=== PATIENT | female | born 1955 | race Caucasian/White ===

== ENCOUNTER 2018-07-25 14:55 | Outpatient (CLI) | payer BC ==
--- NOTE | 2018-07-25 16:21 | MMO ---
Bilateral MAMMO Bilat Screen [facility]. CLINICAL HISTORY: Patient is 62 years old and is seen for screening. The patient has the following family history of breast cancer: mother, in her 50's. The patient has no personal history of cancer. The patient has a history of right Excisional Biopsy in 2006 - benign and Breast reduction at age 38. VIEWS: The views performed were: bilateral craniocaudal with tomosynthesis and bilateral mediolateral oblique with tomosynthesis. FILMS COMPARED: The present examination has been compared to prior imaging studies performed at [facility] on 04/02/2014 and 04/13/2016, and at [facility] on 08/02/2005 and 02/09/2007. MAMMOGRAM FINDINGS: There are scattered fibroglandular densities. There are no suspicious masses, calcifications or areas of architectural distortion. There are benign appearing calcifications in both breasts. Stable right breast biopsy clip. There are no suspicious masses, suspicious calcifications, or new areas of architectural distortion. IMPRESSION: THERE IS NO MAMMOGRAPHIC EVIDENCE OF MALIGNANCY. A ROUTINE FOLLOW-UP MAMMOGRAM IN 1 YEAR IS RECOMMENDED. THE RESULTS OF THIS EXAM WERE SENT TO THE PATIENT. ACR BI-RADS Category 2 - Benign finding MAMMOGRAPHY NOTE: 1. A negative mammogram report should not delay a biopsy if a dominant of clinically suspicious mass is present. 2. Approximately 10% to 15% of breast cancers are not detected by mammography. 3. Adenosis and dense breasts may obscure an underlying neoplasm.
== END 2018-07-25 14:56 | disposition home or self-care (01) ==
LOC: BICMAMMO 14:55
PROVIDERS: ATTEND Family Medicine
DX: Z12.31 Encounter for screening mammogram for malignant neoplasm of breast (principal); Z80.3 Family history of malignant neoplasm of breast; Z91.89 Other specified personal risk factors, not elsewhere classified
CPT/HCPCS: 77063; 77067

== ENCOUNTER 2019-02-09 15:12 | Inpatient (IN) | payer BC, SELFPAY ==
[~2019-02-09 15:12] MED LIST: Iopamidol-370 76% 500 ML 1 ML ONE
[2019-02-09 15:41] LABS: #Basophils 0.1 thou/uL (0.0-0.2); #Eosinphils 0.2 thou/uL (0.0-0.7); #Lymphocytes 1.4 thou/uL (1.20-3.40); #Monocytes 1.2 thou/uL (0.11-0.59); #Neutrophils 13.7 thou/uL (1.40-6.50); %Basophils 0.3 % (0.0-1.0); %Lymphocytes 8.6 % (21.0-51.0); %Neutrophils 83.1 % (42.0-75.0); Hemoglobin 14.4 g/dL (12.0-16.0); Mean Corpuscular Hemoglobin 31.1 pg (27.0-31.0); Mean Corpuscular Volume 91.3 fL (78.0-98.0); Platelet Count 249 thou/uL (130-400); RBC Distribution Width 12.4 % (11.5-14.5); Red Blood Cell (RBC) Count 4.64 mill/uL (4.20-5.40); White Blood Cell (WBC) Count 16.5 thou/uL (4.8-10.8)
[2019-02-09] MEDS ORDERED: Metoclopramide HCl 10 MG/2 ML VIAL ONE (15:58)
[2019-02-09] MEDS ORDERED: Pantoprazole 40 MG VIAL ONE (15:58)
[2019-02-09 16:09] LABS: ALT (SGPT) 22 U/L (8-55); AST (SGOT) 17 U/L (5-34); Albumin 4.5 g/dL (3.4-4.8); Alkaline Phosphatase 99 U/L (40-110); Anion Gap 12 mmol/L (10-20); BUN (Urea Nitrogen) 13 mg/dL (9.8-20.1); Bilirubin, Total 0.4 mg/dL (0.2-1.2); Calc. Creatinine Clearance 0 mL/min (70-130); Calcium 10.7 mg/dL (7.8-10.44); Carbon Dioxide 25 mmol/L (23-31); Chloride 106 mmol/L (98-107); Estimated GFR-MDRD 84; Globulin 2.8 g/dL (2.4-3.5); Glucose 107 mg/dL (80-115); Lipase 79 U/L (8-78); Potassium 3.6 mmol/L (3.5-5.1); Protein, Total 7.3 g/dL (6.0-8.3); Sodium 139 mmol/L (136-145)
[2019-02-09 16:22] LABS: Bacteria/HPF None Seen HPF (None Seen); Bilirubin Negative (Negative); Blood, Urine 2+ (Negative); Clarity Clear (Clear); Glucose, Urine (Dipstick) Normal (Negative); Leukocyte Negative Leu/uL (Negative); Nitrite Negative (Negative); Protein, Urine (Dipstick) 10 mg/dL (Neg-Trace); Squamous Epithelial 0-3 HPF (0-3); Urobilinogen Normal mg/dL (Less than 2); WBC/HPF 0-3 HPF (0-3)
--- NOTE | 2019-02-09 16:54 | ULT ---
ULTRASOUND ABDOMEN LIMITED: (RIGHT UPPER QUADRANT) 02/09/19 HISTORY: 63-year-old female with right upper quadrant abdominal pain. FINDINGS: Gallbladder: No gallstones, mural thickening, or pericholecystic fluid. Questionable small amount of sludge. Common duct: 3 mm. Liver: Normal echogenicity. Pancreas: No sonographic abnormality identified. Right kidney: No hydronephrosis. IMPRESSION: 1. Questionable gallbladder sludge. 2. Otherwise negative. CLAUDIA Rodriguez POS: MATTHEW
--- NOTE | 2019-02-09 18:24 | CT ---
CTA OF THE CHEST AND ABDOMEN UTILIZING AN AORTIC DISSECTION PROTOCOL AND 3-D REFORMATTED IMAGING INDICATION: 63-year-old female with abdominal pain and chest pain COMPARISON: None FINDINGS: Aorta: No acute aortic stenosis, occlusion or aneurysmal formation demonstrated. There are vascular c alcifications involving the thoracic and abdominal aorta Central pulmonary artery: No central pulmonary embolus demonstrated. Additional thorax findings: There is a calcified lymph node within the right aspect of the mediastinu m. There is subsegmental volume loss involving both lungs. There is a small hiatal hernia. Additional abdominal findings: There is inflammatory infiltration and edema involving the pancreatic head. There is reactive wall edema involving the third portion the duodenum. There are shotty appearing lymph nodes within the peripancreatic region. There is partial visualization of intra-abdom inal wall hernia mesh. Osseous structures: No acute osseous abnormality. There is scattered degenerative and osteoarthritic change present. IMPRESSION: 1. No appreciable aortic stenosis, occlusion or aneurysmal formation demonstrated. 2. Noncomplicated acute pancreatitis
[2019-02-09] MEDS ORDERED: Morphine 4 MG/ML VIAL ONE ×2 (19:00→20:01)
[2019-02-09] MEDS ORDERED: Ondansetron PF 4 MG/2 ML Vial ONE (20:01)
[2019-02-09] MEDS ORDERED: Ketorolac Tromethamine 30 MG/ML VIAL ONE (20:01)
[2019-02-09 20:22] LABS: Amphetamine Not Detected (NotDetected); Barbiturates Screen Not Detected (NotDetected); Benzodiazepine Screen Not Detected (NotDetected); Cocaine Metabolite Screen Not Detected (NotDetected); Medtox Control Line Valid? VALID (VALID); Medtox Reader # READER 4; Methadone Not Detected (NotDetected); Methamphetamine Not Detected (NotDetected); Opiate Screen Not Detected (NotDetected); Oxycodone Screen Not Detected (NotDetected); Phencyclidine (PCP) Not Detected (NotDetected); THC/Cannabinoid Screen Not Detected (NotDetected); Tricyclic Screen Not Detected (NotDetected)
--- NOTE | 2019-02-09 21:07 | PDOC.EVN ---
Event Note - Event Note Event Note: [id number]
[2019-02-09] MEDS: Famotidine/PF 20 mg/2ml Vial SLOW IVP SCH (22:37)
[2019-02-09] MEDS: Sodium Chloride 0.9% 1,000 ML IV SCH (22:38)
[2019-02-10] MEDS: Morphine 4 MG/ML VIAL SLOW IVP PRN ×4 (00:17→19:23)
[2019-02-10] MEDS ORDERED: cefTRIAXone\\ROCEPHIN 1 GM in Sodium Chloride 0.9% 100 ML IVPB SCH (01:00)
[2019-02-10] MEDS: Acetaminophen 650 MG in Premix Bag 1 BAG IVPB PRN ×4 (01:05→22:11)
--- NOTE | 2019-02-10 02:28 | HP ---
CHIEF COMPLAINT: Abdominal pain. HISTORY OF PRESENT ILLNESS: Ms. Bourne is a 63-year-old female with past medical history of hyperlipidemia, presented to the emergency room with abdominal pain that started yesterday evening. The patient also reported nausea and vomiting. She reports that the last p.o. intake was around 10:00 a.m. this morning. She is unable to tolerate the meal. The patient also reported the pain radiating to the back and the chest. She has a history of hysterectomy one year ago and emergency hernia surgery 10 years ago. Denies bowel or urinary changes. No fever, no chills. Workup in the emergency room, including right upper quadrant ultrasound unremarkable except for questionable gallbladder sludge. CT of the abdomen showed noncomplicated acute pancreatitis. Lipase is elevated, mildly at 79 ? The patient continues to have intractable abdominal pain. The patient is being admitted to the hospital for further management. PAST MEDICAL HISTORY: Hyperlipidemia. PAST SURGICAL HISTORY: As mentioned above in the history of present illness. FAMILY HISTORY: Reviewed and noncontributory. SOCIAL HISTORY: She is a smoker, smokes a pack a day. She denies alcohol drinking. HOME MEDICATIONS: Please see home medication reconciliation form for updated medications. ALLERGIES: NO KNOWN ALLERGIES. REVIEW OF SYSTEMS: Review of 14 systems negative except what is mentioned in the history of present illness. PHYSICAL EXAMINATION: GENERAL: The patient is awake, alert, in moderate/severe distress secondary to pain. VITAL SIGNS: Blood pressure 142/76, pulse is 68, temperature is 98.6, respiratory rate is 16. HEAD: Normocephalic, atraumatic. NECK: Supple. No JVD. CHEST: Fair bilateral air entry. ABDOMEN: Soft with mid abdominal and epigastric tenderness. Bowel sounds present. NEUROLOGIC: Awake, alert, and oriented x3. PSYCHIATRIC: Normal mood. EXTREMITIES: No clubbing or cyanosis. LABORATORY DATA: CTA of the chest and abdomen as mentioned above in history of present illness. Lipase is only mildly elevated at 79. Urinalysis shows 2+ blood and rbc's, otherwise unremarkable. WBC count is elevated at 16.5, hemoglobin is 14.4, platelets Bilirubin is normal. Alkaline phosphatase normal. ALT and AST normal. ASSESSMENT AND PLAN: 1. Acute abdominal pain. 2. Acute pancreatitis ? as seen on imaging studies with only mildly elevated lipase ? 3. Nausea and vomiting. 4. Hyperlipidemia. PLAN: 1. Admit. 2. N.p.o. 3. IV fluids. 4. Pain management. 5. Reassess in a.m. If the patient is able to tolerate p.o., possible discharge. 6. Also we will check triglyceride level. 7. Reconcile home medications. 8. DVT prophylaxis as appropriate. 9. Expected length of stay at least 1 midnight if the patient is stable and able to tolerate p.o. Job ID: [id number]
[2019-02-10] MEDS: Ondansetron PF 4 MG/2 ML Vial IVP PRN ×3 (04:22→19:28)
[2019-02-10 05:21] LABS: Band 9 % (5-11); Eosinophils 1 % (0-10); Lymphocytes 10 % (21-51); MDiff Complete? YES; Mean Corpuscular HGB CONC 33.2 g/dL (32.0-36.0); Mean Corpuscular Hemoglobin 30.3 pg (27.0-31.0); Mean Corpuscular Volume 91.4 fL (78.0-98.0); Mean Platelet Volume 7.7 fL (7.4-10.4); Monocytes 8 % (0-10); Neutrophil 71 % (42-75); Platelet Count 213 thou/uL (130-400); Platelet Morphology Comment Appears Adequate; RBC Distribution Width 12.1 % (11.5-14.5); RBC Morphology Normal; Reactive Lymphocytes 1 % (0-10); Red Blood Cell (RBC) Count 4.28 mill/uL (4.20-5.40); White Blood Cell (WBC) Count 14.6 thou/uL (4.8-10.8)
[2019-02-10 05:48] LABS: ALT (SGPT) 15 U/L (8-55); AST (SGOT) 12 U/L (5-34); Albumin 3.8 g/dL (3.4-4.8); Alkaline Phosphatase 77 U/L (40-110); Anion Gap 10 mmol/L (10-20); BUN (Urea Nitrogen) 10 mg/dL (9.8-20.1); Bilirubin, Total 0.4 mg/dL (0.2-1.2); Calc. Creatinine Clearance 106 mL/min (70-130); Calcium 8.9 mg/dL (7.8-10.44); Carbon Dioxide 26 mmol/L (23-31); Chloride 106 mmol/L (98-107); Estimated GFR-MDRD 89; Globulin 2.1 g/dL (2.4-3.5); Glucose 126 mg/dL (80-115); Potassium 3.5 mmol/L (3.5-5.1); Protein, Total 5.9 g/dL (6.0-8.3); Sodium 138 mmol/L (136-145)
[2019-02-10] MEDS: Sodium Chloride 0.9% 1,000 ML IV SCH ×4 (06:44→21:57)
[2019-02-10] MEDS: Famotidine/PF 20 mg/2ml Vial SLOW IVP SCH ×2 (08:34→21:57)
[2019-02-10] MEDS ORDERED: Morphine 2 MG/ML SYRINGE SLOW IVP SCH (09:15)
--- NOTE | 2019-02-10 12:03 | PRG ---
DATE OF SERVICE: 02/10/2019 SUBJECTIVE: The patient is seen and examined at the bedside. She has quite significant amount of abdominal pain with some nausea. She did not improve much since yesterday. OBJECTIVE: VITAL SIGNS: Blood pressure is 111/56, pulse is 66, respirations 20, O2 saturation is 92% on room air, temperature is 99.1 and maximal is 100.9. HEAD: Atraumatic and normocephalic. EYES: PERRLA. Sclerae are nonicteric. ENT: Oral mucosa is dry. NECK: Supple. LUNGS: Clear. HEART: S1 and S2 normal. No S3. No S4. No any murmur. ABDOMEN: Soft. Somewhat tender to palpation in the mid center. No guarding. No masses. EXTREMITIES: No clubbing, cyanosis, or edema. NEUROLOGIC: She is alert and oriented x4. There are no any motor or sensory deficits. LABORATORY DATA: Labs showed white count of 14.6, hemoglobin of 13.0, hematocrit 39.2, platelet count is 213. Normal electrolytes. Normal kidney function. Glucose 126. Normal AST and ALT. Normal bilirubin. Normal alkaline phosphatase. Globulin 2.1. Serum total protein 5.9. IMPRESSION: 1. Abdominal pain with mildly elevated lipase in the setting of patient who does not drink alcohol and she has possible gallbladder sludge based on the ultrasound of the abdomen which was done yesterday. 2. Hyperlipidemia. PLAN: Continue IV fluids. Restart morphine 4 mg every 4 hours IV push. We will keep her on n.p.o. with ice chips. We will continue antiemetics. We will stop her Rocephin and continue DVT prophylaxis. Job ID: [id number]
[2019-02-11] MEDS: Acetaminophen 650 MG in Premix Bag 1 BAG IVPB PRN ×4 (04:27→22:42)
[2019-02-11] MEDS: Sodium Chloride 0.9% 1,000 ML IV SCH ×4 (04:27→22:42)
[2019-02-11 06:53] LABS: #Basophils 0.1 thou/uL (0.0-0.2); #Eosinphils 0.2 thou/uL (0.0-0.7); #Lymphocytes 1.7 thou/uL (1.20-3.40); #Monocytes 0.9 thou/uL (0.11-0.59); #Neutrophils 8.7 thou/uL (1.40-6.50); %Basophils 0.4 % (0.0-1.0); %Eosinophils 1.3 % (0.0-10.0); %Lymphocytes 14.8 % (21.0-51.0); %Monocytes 7.6 % (0.0-10.0); %Neutrophils 75.9 % (42.0-75.0); Mean Corpuscular HGB CONC 32.8 g/dL (32.0-36.0); Mean Corpuscular Hemoglobin 30.3 pg (27.0-31.0); Mean Corpuscular Volume 92.1 fL (78.0-98.0); Mean Platelet Volume 7.6 fL (7.4-10.4); Platelet Count 176 thou/uL (130-400); Red Blood Cell (RBC) Count 3.63 mill/uL (4.20-5.40); White Blood Cell (WBC) Count 11.4 thou/uL (4.8-10.8)
[2019-02-11] MEDS: Famotidine/PF 20 mg/2ml Vial SLOW IVP SCH (08:23)
[2019-02-11] MEDS: Ondansetron PF 4 MG/2 ML Vial IVP PRN ×2 (08:25→20:12)
--- NOTE | 2019-02-11 12:43 | CON ---
DATE OF CONSULTATION: 02/11/2019 REQUESTING PHYSICIAN: Enrrique Harris MD REASON FOR CONSULTATION: Intractable abdominal pain and pancreatitis. HISTORY OF PRESENT ILLNESS: Ángela Bourne is a 63-year-old woman, who was admitted to the hospital a couple of days ago with first episode of acute pancreatitis. She had a fairly sudden onset the prior day of nausea and vomiting as well as epigastric pain radiating to the back and up into the chest. She has intermittently been febrile since presentation with low-grade fevers. Notably, CT scan on admission demonstrated inflammatory changes and reactive edema around the pancreatic head with reactive edema in the third portion of the duodenum. There are no CT evidence of other complications. An ultrasound showed possible biliary sludge, but a normal common bile duct. Lipase was elevated only to 79 and has since come down to 34 and LFTs have been normal throughout this admission. Regardless, the patient has continued to have significant abdominal pain, has continued to request morphine and Tylenol. She has not had any bowel movements since admission. The nausea is a bit better. She has remained n.p.o. with favorable hemodynamic status and laboratory studies. The patient does endorses she takes a lot of nonsteroidal anti-inflammatory drugs on an outpatient basis for her joint aches and pains. PAST MEDICAL HISTORY: Hysterectomy, anterior abdominal wall hernia surgery, and colonoscopy in 2014 showing only left-sided diverticulosis. REVIEW OF SYSTEMS: Full review of systems including constitutional, head, eyes, ears, nose, throat, GI, , cardiovascular, respiratory, musculoskeletal, and neurologic systems are negative except as noted in the HPI. SOCIAL HISTORY: The patient does smoke one pack cigarettes per day. No alcohol use. No drug use. FAMILY HISTORY: Her father had colon cancer. ALLERGIES: NO KNOWN DRUG ALLERGIES. OUTPATIENT MEDICATIONS: Atorvastatin. INPATIENT MEDICATIONS: 1. Morphine p.r.n. 2. Tylenol p.r.n. 3. Pepcid 20 mg q.12 hours IV. 4. Zofran p.r.n. PHYSICAL EXAMINATION: VITAL SIGNS: Temperature 98.9, T-max overnight was 100.6, pulse 51, blood pressure 112/59, and 95% oxygen saturation on room air. GENERAL: A 63-year-old woman, lying in bed comfortably, in no distress. SKIN: No jaundice. No rashes were palpable. HEENT: Eyes, no scleral icterus. Extraocular movements intact. ENT, mucous membranes moist. No oral lesions. LYMPH: No submandibular or supraclavicular lymphadenopathy. Thyroid, nontender to palpation. HEART: Regular rate and rhythm. LUNGS: Clear to auscultation bilaterally. ABDOMEN: Bowel sounds are hypoactive, but present. The abdomen is soft and nontender to palpation throughout. No guarding or rebound tenderness. EXTREMITIES: No peripheral edema. VESSELS: Radial pulses 2+ bilaterally. NEURO: Cranial nerves 2 through 12 intact bilaterally. No focal deficits. LABORATORY STUDIES: WBC is 11.4, hemoglobin 11.0, and platelets 176. Sodium 138, potassium 3.5, BUN 10, and creatinine 0.67. Troponin less than 0.01. Lipase initially 79, now down to 34 and triglycerides only 61. LFTs all normal with total bilirubin 0.4, alkaline phosphatase 77, AST 12, and ALT 15. Urinalysis shows 11 to 20 rbc's, otherwise negative. Urine drug screen is negative. IMAGING STUDIES: Abdominal ultrasound showed possible gallbladder sludge, but normal appearing common bile duct 3 mm, otherwise normal ultrasound. CT of the abdomen, dissection protocol demonstrated inflammatory changes of the pancreatic head with reactive edema in the third portion of the duodenum. No evidence of any complication from this. She also has bilateral adrenal nodules with followup imaging of this recommended. ASSESSMENT AND PLAN: 1. Acute pancreatitis, idiopathic, first episode. 2. Abdominal pain, persistent, likely secondary to pancreatitis. 3. Nausea and vomiting, improved somewhat. The patient's presentation is consistent with first episode of acute pancreatitis. This is based on characteristic symptoms as well as CT findings. The lipase is not significantly elevated and in fact has now normalized, but symptoms persist. We discussed the possibility of significant duodenitis or even duodenal ulcer disease as trigger for this episode. She does take a lot of nonsteroidal anti-inflammatory drugs. Continue supportive care for the pancreatitis, would keep her n.p.o. today given her ongoing pain medication requirements, and we will plan for diagnostic esophagogastroduodenoscopy tomorrow to evaluate the duodenum specifically. Thank you for the consultation. Please call anytime with questions or concerns. Job ID: [id number]
--- NOTE | 2019-02-11 13:36 | PRG ---
DATE OF SERVICE: 02/11/2019 SUBJECTIVE: The patient is seen and examined at the bedside. She feels significantly better. The amount of pain in her abdomen is decreased. She had some nausea, but no vomiting. No diarrhea. OBJECTIVE: VITAL SIGNS: Blood pressure is 118/65, pulse is 50, temperature is 100.6, maximal respiratory rate is 15, O2 saturation is 93% on room air. HEENT: Her head is atraumatic and normocephalic. Eyes are PERRLA. Sclerae are nonicteric. Oral mucosa is slightly dry. NECK: Supple. LUNGS: Clear. HEART: S1 and S2 normal. ABDOMEN: Soft, [id number] tender in the epigastric area. No guarding. No masses. EXTREMITIES: No clubbing, cyanosis, or edema. NEUROLOGIC: She is alert and oriented x4. There are no any motor or sensory deficits. LABORATORY DATA: White count of 11.4, hemoglobin of 11.0, hematocrit 33.4, platelet count is 176,000. Microbiology, no reports of progress. IMPRESSION: 1. Abdominal pain with mildly elevated lipase in the setting of patient who does not drink alcohol and she has possible gallbladder sludge, but no any other explanation of this pancreatic irritation. The patient was seen by fire safety inspector, Dr. Gopal Joe, who recommends esophagogastroduodenoscopy to rule out peptic ulcer disease, which is penetrating posterior wall and irritating the pancreas, which is underlying. 2. Low-grade fever, most likely related to #1 and urinalysis did not show any evidence of infection and CT angiogram did not reveal any infection in her lungs. 3. Bilateral adrenal gland nodules per CT findings. We will obtain DHEA, cortisol, testosterone, estrogen, and aldosterone levels to see whether any of those nodules hormonally active and she will have MRI on both adrenal glands done on outpatient basis and she will follow up with automotive worker for that purpose. 4. Hyperlipidemia. 5. Right pulmonary nodule for the followup in the future next 6 to 12 months on outpatient basis. PLAN: As mentioned above, we are going to continue her fluids but at 100 mL/h and we will continue her antiemetics. We will change her from H2 vicente to PPI for possible peptic ulcer disease and as I mentioned above, she will have follow up for her adrenal gland nodules and follow up for pulmonary nodule on outpatient basis. Job ID: [id number]
[2019-02-11] MEDS ORDERED: Pantoprazole 40 MG VIAL IVP SCH (17:45)
[2019-02-11] MEDS: Morphine 4 MG/ML VIAL SLOW IVP PRN (20:13)
[2019-02-12] MEDS: Morphine 4 MG/ML VIAL SLOW IVP PRN ×3 (00:22→22:29)
[2019-02-12] MEDS: Ondansetron PF 4 MG/2 ML Vial IVP PRN ×3 (00:23→22:29)
[2019-02-12 05:09] LABS: #Eosinphils 0.3 thou/uL (0.0-0.7); #Lymphocytes 1.9 thou/uL (1.20-3.40); #Monocytes 0.7 thou/uL (0.11-0.59); #Neutrophils 5.8 thou/uL (1.40-6.50); %Basophils 0.5 % (0.0-1.0); %Eosinophils 3.3 % (0.0-10.0); %Lymphocytes 21.6 % (21.0-51.0); %Monocytes 8.1 % (0.0-10.0); %Neutrophils 66.5 % (42.0-75.0); Hemoglobin 10.7 g/dL (12.0-16.0); Mean Corpuscular HGB CONC 32.9 g/dL (32.0-36.0); Mean Corpuscular Hemoglobin 30.3 pg (27.0-31.0); Mean Corpuscular Volume 92.1 fL (78.0-98.0); Mean Platelet Volume 8.3 fL (7.4-10.4); Platelet Count 187 thou/uL (130-400); RBC Distribution Width 11.8 % (11.5-14.5); Red Blood Cell (RBC) Count 3.53 mill/uL (4.20-5.40); White Blood Cell (WBC) Count 8.6 thou/uL (4.8-10.8)
[2019-02-12] MEDS: Acetaminophen 650 MG in Premix Bag 1 BAG IVPB PRN ×2 (05:20→21:25)
[2019-02-12] MEDS ORDERED: Pantoprazole 40 MG VIAL IVP SCH (09:00)
[2019-02-12] MEDS ORDERED: PROPOFOL 200 MG/20 ML VIAL ONE (09:25)
[2019-02-12] MEDS ORDERED: Benzocaine 20% Spray 60 ML CAN ONE (09:25)
[2019-02-12] MEDS ORDERED: Ondansetron HCl/PF 4 MG/2 ML Vial IVP PRN (10:19)
[2019-02-12] MEDS ORDERED: Promethazine HCl 25 MG/ML VIAL SLOW IVP PRN (10:19)
[2019-02-12] MEDS: Sodium Chloride 0.9% 1,000 ML IV SCH (11:30)
--- NOTE | 2019-02-12 12:36 | OP ---
DATE OF PROCEDURE: 02/12/2019 SUPPLY AND DISTRIBUTION MANAGER SURGEON: None. PROCEDURE: Esophagogastroduodenoscopy with biopsies. INDICATION: 1. Epigastric pain. 2. Nausea and vomiting. 3. Chronic NSAID use. 4. Acute pancreatitis, with CT suggesting reactive inflammatory changes in the duodenum, rule out duodenal ulcer disease. MEDICATIONS: See Anesthesia record. FINDINGS: After discussion of the risks, benefits, and alternatives of the procedure, informed consent was obtained and witnessed. Pre-endoscopic cardiopulmonary examination was satisfactory. Time-out was performed before sedation was achieved. Sedation was achieved with Anesthesia assistance in the endoscopy unit. A Pentax adult upper endoscope was placed into the oropharynx and passed through the cricopharyngeus under direct visualization. The esophageal mucosa appeared normal with a normal-appearing Z-line. The endoscope was advanced into the stomach. Forward and retroflexed views of the entire gastric mucosa were obtained. The mucosa of the gastric fundus and proximal body appeared normal. In the gastric antrum, there is patchy erythema, edema, and friability, particularly in the distal part of the antrum toward the pylorus. There is a single ulceration in the antrum measuring about 1 cm in diameter. This is clean based with no evidence of hemorrhage. Biopsies were obtained from the gastric antrum and body to rule out H pylori infection. The endoscope was advanced through the pylorus and into the duodenal bulb, where there is also some patchy erythema and friability, though no erosions or ulcerations in this area. Beyond the duodenal sweep in the second and third portion of the duodenum, the mucosa appears normal. There is a large diverticulum in the second portion of the duodenum. The upper endoscope was completely withdrawn and the patient allowed to recover. The patient tolerated the procedure well. There were no immediate postprocedure complications. IMPRESSION: 1. Gastric ulcer in the antrum, 1 cm in diameter, clean based without hemorrhage. 2. Erosive gastritis in the antrum, biopsied to rule out Helicobacter pylori. 3. Erosive duodenitis in the bulb. 4. Normal mucosa in the second and third portion of the duodenum. 5. Large diverticulum in the second portion of the duodenum. RECOMMENDATIONS: 1. Twice daily proton pump inhibitor. 2. Stop all nonsteroidal anti-inflammatory drugs. 3. Follow up results of gastric biopsies. If H pylori is present, treat with triple therapy and confirm eradication. 4. Clear liquid diet, hopefully will be able to be advanced as tolerated over the next day or two. 5. Plan to follow up in GI clinic in about 1 month. 6. Plan to repeat EGD in about 2 months, to assure ulcer healing. Job ID: [id number]
[2019-02-12] MEDS: Polyethylene Glycol 3350 17 GM Packet PO PRN (15:18)
--- NOTE | 2019-02-12 22:44 | PDOC.HOSPP ---
- Subjective Encounter Date: 02/12/19 Encounter Time: 11:45 Subjective: Patient seen and examined for Acute Pancreatitis. Abd pain improving. s/p EGD. No fever/chills/Nausea. No new complaints. No overnight events - Objective Vital Signs & Weight: Vital Signs (12 hours) Temp Pulse Resp BP Pulse Ox 02/12/19 20:00 98.3 F 45 L 16 138/78 92 L 02/12/19 10:50 97.5 F L 53 L 18 128/84 96 Weight Admit Weight 168 lb 4.8 oz Weight 169 lb 1.6 oz I&O: 02/11/19 02/12/19 02/13/19 06:59 06:59 06:59 Intake Total 3725 1371 Balance 3725 1371 Result Diagrams: 02/12/19 04:48 02/10/19 05:02 Radiology Reviewed by me: Yes (CT abd - reviewed) Hospitalist ROS - Review of Systems Respiratory: denies: cough, dry, shortness of breath, hemoptysis, SOB with excertion, pleuritic pain, sputum, wheezing, other Cardiovascular: denies: chest pain, palpitations, orthopnea, paroxysmal noc. dyspnea, edema, light headedness, other - Medication Medications: Active Medications Generic Name Dose Route Start Last Admin Trade Name Freq PRN Reason Stop Dose Admin Acetaminophen 650 mg/ Device 65 mls @ 260 mls/hr 02/12/19 05:03 02/12/19 21: 25 IVPB 02/13/19 05:04 65 mls Q6H PRN Administration Mild Pain (1-3)/FEVER Morphine Sulfate 4 mg 02/10/19 11:40 02/12/19 22:29 Morphine SLOW IVP 4 mg Q4H PRN Administration Pain Ondansetron HCl 4 mg 02/11/19 23:01 02/12/19 22:29 Zofran IVP 4 mg Q4H PRN Administration Nausea/Vomiting Pantoprazole Sodium 40 mg 02/12/19 21:00 02/12/19 21:24 Protonix PO 40 mg BID MARY JO Administration Polyethylene Glycol 17 gm 02/12/19 14:44 02/12/19 15:18 Miralax PO 17 gm DAILYPRN PRN Administration Constipation Sodium Chloride 10 ml 02/11/19 09:00 02/12/19 21:24 Flush - Normal Saline IVF 10 ml Q12HR MARY JO Administration - Exam General Appearance: NAD Neck: supple, no JVD Heart: RRR, no gallops Respiratory: CTAB, no rales Gastrointestinal: soft, normal bowel sounds, no guarding, no rigidity Gastrointestinal - other findings: mild gen tend Extremities: no edema Hosp A/P - Plan DVT proph w/SCDs Acute Pancreatitis causing N/V/Epigastric pain (POA) PUD s/p EGD 02/12 Obesity BMI 32 Chronic NSAID use Pulmonary lymph node/Adrenal nodule on CT - PCP to follow PLAN: Cont Clear liqd diet DC IVF later today if tolerating liqd well Pain control Cont PPI Cont other meds
[2019-02-13] MEDS: Morphine 4 MG/ML VIAL SLOW IVP PRN (02:56)
[2019-02-13] MEDS: Ondansetron PF 4 MG/2 ML Vial IVP PRN (02:56)
[2019-02-13] MEDS: Polyethylene Glycol 3350 17 GM Packet PO PRN (08:32)
[2019-02-13 14:45] VITALS: BMI 31.9
[2019-02-13 15:45] VITALS: BP 167/75; TEMP 98.2
--- NOTE | 2019-02-13 19:24 | DIS ---
DATE OF ADMISSION: 02/09/2019 DATE OF DISCHARGE: 02/13/2019 DISCHARGE DISPOSITION: Home. FOLLOWUP: Follow up with primary care physician in 3 to 4 days. Please note that the patient has seen Dr. Hurd in the past. She is planning to establish care with Dr. Hurd. Follow up with Dr. Gopal Joe in 2 to 3 weeks. ALLERGIES: NO KNOWN DRUG ALLERGIES. DISCHARGE MEDICATIONS: 1. Protonix 40 mg b.i.d. 2. Tramadol as needed. 3. Lipitor 20 mg daily. INPATIENT POLLUTION CONTROL TECHNICIAN: Gastroenterology, Dr. Gopal Joe. The patient was seen and examined on the day of discharge. Her abdominal pain has significantly improved. She is tolerating full liquid diet. BRIEF HOSPITAL COURSE: The patient is a 63-year-old female with hyperlipidemia, presented to the hospital with abdominal discomfort on 02/09/2019. CT scan was consistent with acute uncomplicated pancreatitis. She was monitored on the medical floor. She was evaluated by Gastroenterology, Dr. Joe. She was kept n.p.o. along with IV fluids. She underwent EGD that was consistent with gastric ulcer in the antrum, 1 cm in diameter, clean based without hemorrhage. It also showed erosive gastritis in the antrum that was biopsied to rule out H pylori. There was also erosive duodenitis in the bulb. Second and the third portion of the duodenum had normal mucosa. There was a large diverticulum in the second portion of the duodenum. She was advised to discontinue NSAIDs. She was advised to follow up in GI Clinic in 3 to 4 weeks. She would require repeat EGD in 2 months to assure ulcer healing. She has been started on Protonix 40 mg b.i.d. Her abdominal pain has significantly improved. Her maximum lipase in this admission was 79. She also had significant leukocytosis of 16.5 on admission with 83% neutrophils. Her WBC count has normalized to 8.6. FINAL DIAGNOSES: 1. Acute uncomplicated pancreatitis causing nausea, vomiting, and epigastric pain. 2. Peptic ulcer disease, status post EGD. 3. Obesity with a BMI of 32. 4. Chronic NSAID use. 5. Bilateral adrenal nodules. Primary care physician advised to follow. 6. 0.6 cm triangular-shaped intrapulmonary lymph node involving the right major fissure. Primary care physician advised to follow. TEST PENDING AT DISCHARGE: Aldosterone level. SIGNIFICANT LABORATORY DATA: Testosterone level was 15.9, DHEA was 39.2, cortisol level was 11.7. PLAN: Plan of care was discussed with the patient in detail. She stated understanding. Job ID: [id number]
== END 2019-02-13 15:31 | disposition home or self-care (01) | DRG 440 ==
LOC: ERS 15:12 → 2SW 20:04 → OBSVTOIN 20:04 → T4-B 02-12 10:56
PROVIDERS: ADMIT Internal Medicine; ATTEND Internal Medicine
PROC: 0DB68ZX Excision of Stomach, Via Natural or Artificial Opening Endoscopic, Diagnostic (ICD-10-PCS; principal; 2019-02-12)
PROC: 0DB78ZX Excision of Stomach, Pylorus, Via Natural or Artificial Opening Endoscopic, Diagnostic (ICD-10-PCS; 2019-02-12)
DX: K85.90 Acute pancreatitis without necrosis or infection, unspecified (principal); E78.5 Hyperlipidemia, unspecified; E66.9 Obesity, unspecified; E27.8 Other specified disorders of adrenal gland; R91.1 Solitary pulmonary nodule; K25.9 Gastric ulcer, unspecified as acute or chronic, without hemorrhage or perforation; K29.70 Gastritis, unspecified, without bleeding; K29.80 Duodenitis without bleeding; K57.10 Diverticulosis of small intestine without perforation or abscess without bleeding; Z68.32 Body mass index [BMI] 32.0-32.9, adult; Z79.1 Long term (current) use of non-steroidal anti-inflammatories (NSAID); Z87.891 Personal history of nicotine dependence; Z79.899 Other long term (current) drug therapy
CPT/HCPCS: 36415; 71275; 72191; 74175; 76705; 80053; 80306; 81003; 81015; 82088; 82533; 82627; 83690; 84403; 84478; 84484; 85007; 85025; 85027; 88305; 88312; 93005; 96361; 96372; 96374; 96375; 96376; C9113; J0131; J0500; J0696; J1885; J2270; J2405; J2704; J2765; J3490; Q9967; S0028

== ENCOUNTER 2020-03-06 07:44 | Day surgery (SDC) | payer OTHER ==
[2020-03-05 10:51] VITALS: BMI 33.0
[2020-03-06 08:34] LABS: INR-International Normal Ratio 0.9; Prothrombin Time 12.8 sec (12.0-14.7)
[2020-03-06] MEDS ORDERED: Fentanyl 100 MCG/2 ML VIAL ONE (09:19)
[2020-03-06 09:31] VITALS: BP 150/71; TEMP 97.8
[2020-03-06] MEDS ORDERED: Midazolam HCl 2 mg/2 ml Vial ONE (09:38)
--- NOTE | 2020-03-06 14:03 | ULT ---
PROCEDURE: Ultrasound-guided random hepatic biopsy PROVIDED CLINICAL HISTORY: Abnormal liver function tests TECHNIQUE: The procedure including the risks and complications were explained to the patient, and informed conse nt was obtained. Patient was placed on the sonography table in the prone position. Conscious sedation was performed with the intravenous administration of 0.5 mg Versed and 25 mcg fentanyl. Kary ent was monitored for approximately 30 minutes during the procedure. The skin and subcutaneous tissues were infiltrated with buffered 1% lidocaine for local anesthesia at the intended puncture site. A small skin incision was made. A 17-gauge guide needle was advanced into the right hepatic lobe utilizing concurrent real-time ultrasound guidance. Utilizing coaxial stefan hnique, [id number] core needle biopsy specimen was obtained. The needle was removed, and hemostasis was achieved with direct pressure for approximately 10 minutes . A dry sterile dressing was placed. Patient was placed in a right lateral decubitus position for one hour. Patient tolerated the procedure well and without immediate complication. Patient was trans ported to radiology nurses holding area for further monitoring prior to discharge IMPRESSION: Technically successful random hepatic biopsy.
== END 2020-03-06 12:50 | disposition home or self-care (01) ==
LOC: SDC 07:44
PROVIDERS: ATTEND Internal Medicine Gastroenterology
PROC: 0FB13ZX Excision of Right Lobe Liver, Percutaneous Approach, Diagnostic (ICD-10-PCS; principal; 2020-03-06)
DX: K83.1 Obstruction of bile duct (principal); M19.90 Unspecified osteoarthritis, unspecified site; Z87.891 Personal history of nicotine dependence; Z79.82 Long term (current) use of aspirin; Z79.899 Other long term (current) drug therapy
CPT/HCPCS: 36415; 47000; 76942; 85610; 85730; 88307; 88313; J2250; J3010

== ENCOUNTER 2020-07-08 15:41 | Outpatient (CLI) | payer OTHER | END 2020-07-08 15:42 | disposition home or self-care (01) | LOC: BICMAMMO 15:41 | PROVIDERS: ATTEND Family Medicine | DX: Z12.31 Encounter for screening mammogram for malignant neoplasm of breast (principal); Z13.820 Encounter for screening for osteoporosis; M85.89 Other specified disorders of bone density and structure, multiple sites; Z80.3 Family history of malignant neoplasm of breast; Z91.89 Other specified personal risk factors, not elsewhere classified; Z98.82 Breast implant status | CPT/HCPCS: 77063; 77067; 77080 ==

== ENCOUNTER 2021-04-15 11:25 | Outpatient (CLI) | payer BC, OTHER | END 2021-04-15 11:26 | disposition home or self-care (01) | LOC: BICRAD 11:25 | PROVIDERS: ATTEND Family Medicine | DX: M25.552 Pain in left hip (principal); M54.9 Dorsalgia, unspecified; M16.12 Unilateral primary osteoarthritis, left hip; M47.816 Spondylosis without myelopathy or radiculopathy, lumbar region | CPT/HCPCS: 72100 ==

== ENCOUNTER 2021-09-03 11:38 | Outpatient (CLI) | payer BC, OTHER | END 2021-09-03 11:39 | disposition home or self-care (01) | LOC: BICMAMMO 11:38 | PROVIDERS: ATTEND Family Medicine | DX: Z12.31 Encounter for screening mammogram for malignant neoplasm of breast (principal); Z80.3 Family history of malignant neoplasm of breast; Z91.89 Other specified personal risk factors, not elsewhere classified; Z98.82 Breast implant status | CPT/HCPCS: 77063; 77067 ==